=== PATIENT | male | born 1995 | race African-American/Black ===

== ENCOUNTER 2021-03-09 09:20 | Emergency (ER) | payer OTHER ==
[2021-03-09] MEDS ORDERED: MAG HYDROX/AL HYDROX/SIMETH 30 ML UNIT-DOSE CUP PO ONE (09:50)
[2021-03-09] MEDS ORDERED: LIDOCAINE VISCOUS 2% ORAL/TOP 20 ML UNIT-DOSE CUP MM ONE (09:50)
[2021-03-09] MEDS ORDERED: FAMOTIDINE 20 MG TABLET PO ONE (09:50)
[2021-03-09] MEDS ORDERED: FAMOTIDINE 20 MG/50 ML IVPB 20 MG/50 ML MG IVPB ONE ×2 (09:51→09:55)
[2021-03-09] MEDS ORDERED: SODIUM CHLORIDE 0.9% 1000 ML INFUS.BAG IV ONE (09:51)
[2021-03-09] MEDS ORDERED: ONDANSETRON 4 MG/2 ML VIAL IVPUSH ONE (09:52)
[2021-03-09] MEDS ORDERED: MAG HYDROX/AL HYDROX/SIMETH 30 ML UNIT-DOSE CUP ONE (09:55)
[2021-03-09] MEDS ORDERED: LIDOCAINE VISCOUS 2% ORAL/TOP 20 ML UNIT-DOSE CUP ONE (09:55)
[2021-03-09] MEDS ORDERED: ONDANSETRON 4 MG/2 ML VIAL ONE (09:55)
[2021-03-09 10:10] VITALS: BMI 37.5
[2021-03-09 10:36] LABS: ALBUMIN 4.3 g/dl (3.4-5.0); CALCIUM 9.2 mg/dl (8.5-10); CREATININE 0.9 mg/dl (0.55-1.3); TOT PROT 7.3 g/dl (6.4-8.2)
[2021-03-09 10:50] LABS: BASO % 1.2 % (0-2.0); EOS % 6.3 % (0-4.5); HEMATOCRIT 43.9 % (35.4-49); HEMOGLOBIN 14.6 GM/dl (11.7-16.9); LYMPH % 34.8 % (8-40); MCH 26.9 pg (25.7-33.7); MCHC 33.3 g/dl (32.0-35.9); MEAN CELL VOLUME 80.6 fl (80-96); MEAN PLT VOLUME 10.2 fl (7.5-11.1); MONO % 8.1 % (3.8-10.2); NEUT % 49.6 % (42.8-82.8); PLATELET COUNT 173 10^3/uL (134-434); RBC 5.45 M/mm3 (4.00-5.60); RDW 13.9 % (11.9-15.9); WHITE BLOOD COUNT 7.3 K/mm3 (4.0-10.8)
[2021-03-09 14:05] VITALS: BP 130/80; PULSE 82; TEMP 98.4
== END 2021-03-09 14:17 | disposition home or self-care (01) ==
LOC: FER 09:20
PROC: 3E033GC Introduction of Other Therapeutic Substance into Peripheral Vein, Percutaneous Approach (ICD-10-PCS; principal; 2021-03-09)
PROC: 3E033GC Introduction of Other Therapeutic Substance into Peripheral Vein, Percutaneous Approach (ICD-10-PCS; 2021-03-09)
DX: K22.0 Achalasia of cardia (principal); R07.9 Chest pain, unspecified
CPT/HCPCS: 36415; 71045-TC-FY; 71275-TC; 74174-TC; 76705-TC; 80053; 82550; 83690; 84484; 85025; 93005; 99285-25; Q9967

== ENCOUNTER 2021-03-19 07:44 | Day surgery (SDC) | payer OTHER ==
[2021-03-18 10:38] VITALS: BMI 37.5
[2021-03-19] MEDS ORDERED: PROPOFOL 20 ML ONE ×2 (09:12)
[2021-03-19 10:31] VITALS: TEMP 98.4
[2021-03-19 10:33] VITALS: BP 112/76; PULSE 90
== END 2021-03-19 10:45 | disposition home or self-care (01) ==
LOC: FASU-ENDO 07:44
PROVIDERS: ATTEND Internal Medicine Gastroenterology
PROC: 0DJ08ZZ Inspection of Upper Intestinal Tract, Via Natural or Artificial Opening Endoscopic (ICD-10-PCS; principal; 2021-03-19 09:18)
DX: R13.10 Dysphagia, unspecified (principal); K22.0 Achalasia of cardia